=== PATIENT | female | born 1985 | race African-American/Black ===

== ENCOUNTER 2023-01-02 00:56 | Day surgery (SDC) | payer OTHER, SELFPAY ==
--- NOTE | 2023-01-02 08:46 | WPDANESEPPF ---
Anes - Initial Pre Proc Eval Procedure: Operation Date: 01/02/23 11:30 Proposed Procedures p Esophagogastroduodenoscopy - Mihir Beckett MD Date/Time: 01/02/23 08:46 Surgeon: Mihir Beckett MD Pre Op Diagnosis: dysphagia Patient Data Age: 37 Gender: F Height: 1.73 m Weight: 75.9 kg Allergies Allergy/AdvReac Type Severity Reaction Status Date / Time diphtheria,pertussis Allergy Intermediate Local Verified 12/11/22 10:43 (acellular),te reaction [From Adacel(Tdap Adolesn/Adult)(PF)] ibuprofen Allergy Intermediate Difficulty Verified 12/26/22 15:03 Breathing shrimp Allergy Intermediate Rash Verified 12/26/22 15:03 amoxicillin Allergy Mild Itching Verified 12/26/22 15:03 azithromycin Allergy Mild Itching Verified 12/26/22 15:03 naproxen Allergy Mild Itching Verified 12/26/22 15:03 tramadol Allergy Mild Itching Verified 12/26/22 15:03 scallops Allergy Mild Itching Uncoded 12/26/22 15:03 Home Medications Medication Instructions Recorded Confirmed Type albuterol sulfate 2.5 mg/3 mL 2.5 mg inhalation Q4-6H PRN Dyspnea 10/30/22 12/26/22 History (0.083 %) solution for nebulization albuterol sulfate 90 mcg/actuation 1 puff inhalation Q4H PRN Dyspnea 10/30/22 12/26/22 History aerosol inhaler cetirizine 10 mg tablet (Zyrtec) 10 mg PO DAILY PRN Allergy Symptoms 10/30/22 12/26/22 History hydroxychloroquine 200 mg tablet 200 mg PO BID 10/30/22 12/26/22 History meclizine 25 mg tablet 25 mg PO BID PRN dizziness #40 tabs 10/30/22 12/26/22 Rx mycophenolate mofetil 500 mg tablet 500 mg PO Q12H 10/30/22 12/26/22 History omeprazole 40 mg capsule,delayed 40 mg PO DAILY 10/30/22 12/26/22 History release Patient hx anesthesia problems: none Family hx anesthesia problems: none Results Review: All pre-operative results and documents have been reviewed as part of the pre-operative evaluation. [facility] Past Medical History Medical History Allergies Arthritis Asthma GERD (gastroesophageal reflux disease) Hiatal hernia History of esophageal stricture History of LEEP (loop electrosurgical excision procedure) of cervix complicating IBS (irritable bowel syndrome) Lupus Vaccination reaction Tdap October 2022 - induration with fireball erythema and itching Vertigo Surgical History Surgical History History of arthroscopy of right knee 2018 History of endometrial ablation 2009 History of sinus surgery 2021 History of tonsillectomy and adenoidectomy 1990 History of tubal ligation 2015 Family History Family History Mother Hypertension Sibling Heart disease Other Anxiety Social History Social History Smoking status: Never smoker Alcohol intake: never Substance use: never Substance use type: does not use Lack of Transportation: No Lack of Food: Never True Current Housing: I Have Housing Concerned About Future Housing: No Difficulty Paying Gas/Electric Bills: No Difficulty Paying for Meds: No Currently Unemployed: No Education: Trade/Vocational Certificate Difficulty w/ Childcare or Family Care: No Living arrangements: alone Occupation/Education: occupation Gender identity (if verbalized by the patient): Female Spiritual care concerns: No Anes - Eval Final PreProcedure Day of Procedure 01/02/23 08:46 Patient weight: normal Heart: regular rate and rhythm Lungs: clear to auscultation and normal air movement Airway: Mallampati scale class II Neurological: alert and oriented Last oral intake: >/= 8 hours ASA classification: III Emergent: no Anesthetic plan: proceed Anesthesia type and monitoring: general GIVS Results Review: All pre-operative results and documents have been reviewed as part of the pre-opera
[2023-01-02 10:40] VITALS: BP 109/77; PULSE 72; RESP 20; TEMP 36.1; O2SAT 100
--- NOTE | 2023-01-02 10:43 | PM.HPGS ---
History of Present Illness History of Present Illness Consent: Risks, benefits, and alternatives have been discussed and questions answered. Patient agrees to proceed with procedure. Chief complaint: dysphagia Narrative: Marva Bianchi is a 37 year old female Referred for investigation of dysphagia. At least once or twice a week she will have food hang up on the way down she will need to stop eating for a bit. She had this happen about 3 years ago and had a treatment, fairly esophageal dilatation done somewhere else. Review of Systems Review of Systems: All systems reviewed & are unremarkable except as noted in HPI and below PMFSH Past Medical History Medical History Allergies Arthritis Asthma GERD (gastroesophageal reflux disease) Hiatal hernia History of esophageal stricture History of LEEP (loop electrosurgical excision procedure) of cervix complicating IBS (irritable bowel syndrome) Lupus Vaccination reaction Tdap October 2022 - induration with fireball erythema and itching Vertigo Surgical History Surgical History History of arthroscopy of right knee 2018 History of endometrial ablation 2009 History of sinus surgery 2021 History of tonsillectomy and adenoidectomy 1990 History of tubal ligation 2015 Family History Family History Mother Hypertension Sibling Heart disease Other Anxiety Social History Social History Smoking status: Never smoker Alcohol intake: never Substance use: never Substance use type: does not use Lack of Transportation: No Lack of Food: Never True Current Housing: I Have Housing Concerned About Future Housing: No Difficulty Paying Gas/Electric Bills: No Difficulty Paying for Meds: No Currently Unemployed: No Education: Trade/Vocational Certificate Difficulty w/ Childcare or Family Care: No Living arrangements: alone Occupation/Education: occupation Gender identity (if verbalized by the patient): Female Spiritual care concerns: No Meds Home Medications and Allergies Home Medications Medication Instructions Recorded Confirmed Type albuterol sulfate 2.5 mg/3 mL 2.5 mg inhalation Q4-6H PRN Dyspnea 10/30/22 01/02/23 History (0.083 %) solution for nebulization albuterol sulfate 90 mcg/actuation 1 puff inhalation Q4H PRN Dyspnea 10/30/22 01/02/23 History aerosol inhaler cetirizine 10 mg tablet (Zyrtec) 10 mg PO DAILY PRN Allergy Symptoms 10/30/22 01/02/23 History hydroxychloroquine 200 mg tablet 200 mg PO BID 10/30/22 01/02/23 History meclizine 25 mg tablet 25 mg PO BID PRN dizziness #40 tabs 10/30/22 01/02/23 Rx mycophenolate mofetil 500 mg tablet 500 mg PO Q12H 10/30/22 01/02/23 History omeprazole 40 mg capsule,delayed 40 mg PO DAILY 10/30/22 01/02/23 History release Allergies Allergy/AdvReac Type Severity Reaction Status Date / Time diphtheria,pertussis Allergy Intermediate Local Verified 01/02/23 11:06 (acellular),te reaction [From Adacel(Tdap Adolesn/Adult)(PF)] ibuprofen Allergy Intermediate Difficulty Verified 01/02/23 11:06 Breathing shrimp Allergy Intermediate Rash Verified 01/02/23 11:06 amoxicillin Allergy Mild Itching Verified 01/02/23 11:06 azithromycin Allergy Mild Itching Verified 01/02/23 11:06 naproxen Allergy Mild Itching Verified 01/02/23 11:06 tramadol Allergy Mild Itching Verified 01/02/23 11:06 scallops Allergy Mild Itching Uncoded 01/02/23 11:06 Exam Const: General: alert Orientation/consciousness: patient oriented x3 Resp: Auscultation: clear to auscultation bilaterally Cardio: Rhythm: regular rhythm GI: GI Palp: Yes Soft to palpation and No Tenderness to palpation present (GI) Neuro: General: patient oriented x3 Assessment
[2023-01-02] MEDS: LACTATED RINGERS 1,000 ML 150 ML IV CONT (11:01)
[2023-01-02 11:29] VITALS: BP 105/66; PULSE 68; RESP 12; O2SAT 100
[2023-01-02 11:39] VITALS: BP 104/71; PULSE 69; RESP 18; O2SAT 100
[2023-01-02 11:49] VITALS: BP 102/71; PULSE 68; RESP 23; O2SAT 100
== END 2023-01-02 12:04 | disposition home or self-care (01) ==
PROVIDERS: PCP Physician Assistant Medical; Visit Provider Internal Medicine Gastroenterology
PROC: 0DJ08ZZ Inspection of Upper Intestinal Tract, Via Natural or Artificial Opening Endoscopic (ICD-10-PCS; CPT 43235; principal; 2023-01-02 11:30)
DX: K22.2 Esophageal obstruction (principal); K21.00 Gastro-esophageal reflux disease with esophagitis, without bleeding; J45.909 Unspecified asthma, uncomplicated; M32.9 Systemic lupus erythematosus, unspecified; Z79.51 Long term (current) use of inhaled steroids
CPT/HCPCS: 43249; 88305; C1726; J2001; J2704; J7120